=== PATIENT | female | born 1965 | race Caucasian/White ===

== ENCOUNTER 2025-01-31 10:53 | Day surgery (SDC) | payer BC ==
[~2025-01-31] VITALS: Ht 170.2 cm; Wt 100.2 kg
[2025-01-31] MEDS ORDERED: ESTRADIOL1 M1 (11:26)
[2025-01-31] MEDS ORDERED: PEPCID40 MG PO (11:26)
[2025-01-31] MEDS ORDERED: PROG100 (11:27)
[2025-01-31] MEDS ORDERED: OMEP20ER (11:27)
[2025-01-31] MEDS ORDERED: MOUNJARO2.5 MG/0.5 SQ (11:30)
--- NOTE | 2025-01-31 11:57 | NUR ---
01/31/25 Caro Haley 2 ATTEMPTS 1 IN THE RH BY SANDHYA 2ND ATTEMPT WAS SUCCESSFUL IN THE RAC BY DLB
== END 2025-01-31 13:04 | disposition home or self-care (01) ==
LOC: ORSCSDS 10:53
PROVIDERS: Specialist
PROC: 0DB58ZX Excision of Esophagus, Via Natural or Artificial Opening Endoscopic, Diagnostic (ICD-10-PCS; principal; 2025-01-31 12:15)
PROC: 0D758ZZ Dilation of Esophagus, Via Natural or Artificial Opening Endoscopic (ICD-10-PCS; principal; 2025-01-31 12:15)
PROC: 0DB68ZX Excision of Stomach, Via Natural or Artificial Opening Endoscopic, Diagnostic (ICD-10-PCS; principal; 2025-01-31 12:15)
DX: R13.10 Dysphagia, unspecified (principal); K44.9 Diaphragmatic hernia without obstruction or gangrene; K29.70 Gastritis, unspecified, without bleeding; K21.9 Gastro-esophageal reflux disease without esophagitis; Z79.85 Long-term (current) use of injectable non-insulin antidiabetic drugs; Z79.899 Other long term (current) drug therapy
CPT/HCPCS: 88305; 88342; C1726; J2704; J7120